=== PATIENT | male | born 1990 | race Caucasian/White ===

== ENCOUNTER 2025-02-12 23:36 | Emergency (ER) | payer MEDICAID ==
[~2025-02-12] VITALS: Ht 170.2 cm; Wt 82.0 kg
[2025-02-12 23:39] VITALS: O2SAT 97
[2025-02-12 23:49] VITALS: BP 133/80; PULSE 85; RESP 18; TEMP 37; O2SAT 98
== END 2025-02-13 02:43 | disposition left against medical advice (07) ==
LOC: ER 23:36
DX: B34.9 Viral infection, unspecified (principal); R05.9 Cough, unspecified; R09.81 Nasal congestion; Z79.899 Other long term (current) drug therapy
CPT/HCPCS: 71045; 93005; 99283